=== PATIENT | male | born 1970 | race Caucasian/White ===

== ENCOUNTER 2018-06-17 05:48 | Day surgery (SDC) | payer BC ==
[~2018-06-17] VITALS: Ht 188 cm; Wt 101.0 kg
[~2018-06-17 05:48] MED LIST: ATOR20TA37 PO; IBUP200C8 PO; RANI150T23 PO; THYR15TA PO; THYR60TA PO
[2018-06-17] MEDS ORDERED: BUPIVACAINE/PF 0.25% ONE (06:44)
[2018-06-17] MEDS ORDERED: BUPIVACAINE/PF-EPI 0.5% 1:200K ONE (06:44)
[2018-06-17] MEDS ORDERED: THROMBIN 5,000 UNIT VIAL TP ONE (06:45)
[2018-06-17] MEDS ORDERED: VANCOMYCIN 1,000 MG ONE ×2 (06:45→07:23)
[2018-06-17] MEDS ORDERED: EPINEPHRINE 1 MG/ML, 1ML ONE (06:45)
[2018-06-17 06:56] VITALS: BP 125/93
[2018-06-17] MEDS ORDERED: LACTATED RINGERS 1,000 ML IV SCH (07:00)
[2018-06-17] MEDS ORDERED: ACYC-113 PO (07:02)
[2018-06-17] MEDS ORDERED: MIDAZOLAM 1 MG/ML, 2ML ONE (07:18)
[2018-06-17] MEDS ORDERED: FENTANYL PF 250 MCG/5ML ONE (07:19)
[2018-06-17] MEDS ORDERED: PROPOFOL 10 MG/ML, 20ML ONE (07:34)
[2018-06-17] MEDS ORDERED: PROPOFOL 10 MG/ML, 50ML ONE (07:34)
[2018-06-17] MEDS ORDERED: CEFAZOLIN 1,000 MG ONE ×2 (07:42)
[2018-06-17] MEDS ORDERED: ROCURONIUM 10MG/ML,5ML ONE (07:42)
[2018-06-17] MEDS ORDERED: SUCCINYLCHOLINE 20 MG/ML, 10ML ONE (07:42)
[2018-06-17] MEDS ORDERED: ONDANSETRON ODT 8 MG PO PRN (08:30)
[2018-06-17] MEDS ORDERED: MORPHINE SULFATE 4 MG/ML, 1ML IVPush PRN (08:30)
[2018-06-17] MEDS ORDERED: DIPHENHYDRAMINE 50 MG/ML, 1ML IM PRN (08:30)
[2018-06-17] MEDS ORDERED: EPHEDRINE 50 MG/ML, 1ML IVPush PRN (08:30)
[2018-06-17] MEDS ORDERED: PROCHLORPERAZINE 5 MG/ML, 2ML IV PRN (08:30)
[2018-06-17] MEDS ORDERED: MEPERIDINE/PF 25MG/0.5ML IVPush PRN (08:30)
[2018-06-17] MEDS ORDERED: PROMETHAZINE 25 MG SUPP PR PRN (08:30)
[2018-06-17] MEDS ORDERED: MIDAZOLAM 1 MG/ML, 2ML IV PRN (08:30)
[2018-06-17] MEDS ORDERED: PROMETHAZINE 12.5 MG SUPP PR PRN (08:30)
[2018-06-17] MEDS ORDERED: ONDANSETRON 2MG/ML, 2ML IV PRN (08:30)
[2018-06-17] MEDS ORDERED: ACETAMINOPHEN 325 MG TABLET PO PRN (08:30)
[2018-06-17] MEDS ORDERED: EPHEDRINE 50 MG/ML, 1ML IM PRN (08:30)
[2018-06-17] MEDS ORDERED: PROMETHAZINE 25 MG/ML, 1ML IV PRN (08:30)
[2018-06-17] MEDS ORDERED: OXYcodone 5 MG/5 ML ORAL.SOL UDC PO PRN (08:30)
[2018-06-17] MEDS ORDERED: FENTANYL PF 100 MCG/2ML IV PRN (08:30)
[2018-06-17] MEDS ORDERED: LABETALOL 5MG/ML, 20ML IV PRN (08:30)
[2018-06-17] MEDS ORDERED: FENTANYL PF 100 MCG/2ML ONE ×2 (09:02→10:16)
[2018-06-17] MEDS ORDERED: DEXAMETHASONE 4 MG/ML, 1ML ONE (09:09)
[2018-06-17] MEDS ORDERED: ONDANSETRON 2MG/ML, 2ML ONE (09:10)
[2018-06-17] MEDS ORDERED: BUPIVACAINE/PF 0.25% INFIL ONE (09:12)
[2018-06-17] MEDS ORDERED: ACETAMINOPHEN 650 MG/20.3 ML UDC ONE (10:16)
[2018-06-17] MEDS ORDERED: OXYcodone 5 MG/5 ML ORAL.SOL UDC ONE (10:16)
== END 2018-06-17 13:25 | disposition home or self-care (01) ==
LOC: OUT 05:48
PROVIDERS: ATTEND Orthopaedic Surgery Orthopaedic Surgery of the Spine
DX: M48.061 Spinal stenosis, lumbar region without neurogenic claudication (principal); M51.26 Other intervertebral disc displacement, lumbar region; E03.9 Hypothyroidism, unspecified; G47.33 Obstructive sleep apnea (adult) (pediatric); E78.00 Pure hypercholesterolemia, unspecified; Z98.890 Other specified postprocedural states; Z79.899 Other long term (current) drug therapy; Z88.8 Allergy status to other drugs, medicaments and biological substances
CPT/HCPCS: 63030; 63047; 72100; J0171; J0330; J0690; J1100; J2250; J2405; J2704; J3010; J3370; J3490; J7120